=== PATIENT | male | born 1980 | race Hispanic/Latino ===

== ENCOUNTER 2017-12-21 09:27 | Emergency (ER) | payer SELFPAY ==
[2017-12-21] MEDS ORDERED: METOCLOPRAMIDE 10 MG/2mL INJ ONE (10:23)
[2017-12-21] MEDS ORDERED: DIPHENHYDRAMINE 50 MG/ML VIAL ONE (10:24)
[2017-12-21] MEDS ORDERED: KETOROLAC 30 MG/ML INJ ONE (10:24)
[2017-12-21] MEDS ORDERED: NA CHLORIDE 0.9% 1,000 ML ONE (10:24)
--- NOTE | 2017-12-21 11:32 | EDPHYS ---
Physician Documentation [facility] Name: Chris Oneal Jr Age: 37 yrs Sex: Male : 1980 Arrival Date: 12/21/2017 Time: 09:30 Bed 18 Private MD: None, None ED Physician Familia Perez HPI: 12/21 11:35 This 37 yrs old Male presents to ER via Ambulatory with complaints of Fever, gs Dizziness, Headache. 11:35 The patient complains of pain to the right buddhism. The patient describes the headache gs as throbbing. Onset: The symptoms/episode began/occurred suddenly, yesterday. Associated signs and symptoms: Pertinent negatives: altered mental status, weakness. Severity of symptoms: At its worst the pain was moderate, in the emergency department the pain is unchanged. Headache History: The patient has had previous headaches and this one is similar to previous episodes. The symptoms are alleviated by nothing. the symptoms are aggravated by nothing. The patient has experienced similar episodes in the past, several times. Historical: - Allergies: :52 No Known Allergies; sv - Home Meds: :52 None [Active]; sv - PMHx: :52 None; sv - PSHx: 09:52 None; sv - Immunization history:: Adult Immunizations up to date. - Social history:: Smoking status: Patient uses tobacco products, denies chronic smoking, but will smoke occasionally, Patient uses alcohol, weekly. - Ebola Screening: : No symptoms or risks identified at this time. ROS: 11:35 All other systems are negative. gs Exam: 11:35 Head/Face: Normocephalic, atraumatic. Eyes: Pupils equal round and reactive to light, gs extra-ocular motions intact. Lids and lashes normal. Conjunctiva and sclera are non-icteric and not injected. Cornea within normal limits. Periorbital areas with no swelling, redness, or edema. ENT: Nares patent. No nasal discharge, no septal abnormalities noted. Tympanic membranes are normal and external auditory canals are clear. Oropharynx with no redness, swelling, or masses, exudates, or evidence of obstruction, uvula midline. Mucous membranes moist. Neck: Trachea midline, no thyromegaly or masses palpated, and no cervical lymphadenopathy. Supple, full range of motion without nuchal rigidity, or vertebral point tenderness. No Meningismus. Chest/axilla: Normal chest wall appearance and motion. Nontender with no deformity. No lesions are appreciated. Cardiovascular: Regular rate and rhythm with a normal S1 and S2. No gallops, murmurs, or rubs. Normal PMI, no JVD. No pulse deficits. Respiratory: Lungs have equal breath sounds bilaterally, clear to auscultation and percussion. No rales, rhonchi or wheezes noted. No increased work of breathing, no retractions or nasal flaring. Abdomen/GI: Soft, non-tender, with normal bowel sounds. No distension or tympany. No guarding or rebound. No evidence of tenderness throughout. Back: No spinal tenderness. No costovertebral tenderness. Full range of motion. Skin: Warm, dry with normal turgor. Normal color with no rashes, no lesions, and no evidence of cellulitis. MS/ Extremity: Pulses equal, no cyanosis. Neurovascular intact. Full, normal range of motion. Neuro: Awake and alert, GCS 15, oriented to person, place, time, and situation. Cranial nerves II-XII grossly intact. Motor strength 5/5 in all extremities. Sensory grossly intact. Cerebellar exam normal. Normal gait. 11:35 Constitutional: The patient appears alert, awake. Vital Signs: 09:53 BP 131 / 88; Pulse 95; Resp 18; Temp 98.4(O); Pulse Ox 97% on R/A; Weight 104.33 kg sv (R); Height 5 ft. 9 in. (175.26 cm) (R); Pain 6/10; 11:38 BP 100 / 70; Pulse 86; Resp 16; Pulse Ox 98% on R/A; aj 09:53 Body Mass Index 33.96 (104.33 kg, 175.26 cm) sv MDM: 10:15 Patient medically screened. 11:35 Differential diagnosis: migraine, tension headache, vasomotor headache. Data reviewed: vital signs, nurses notes. Response to treatment: the patient's symptoms have resolved after treatment. Administered Medications: 10:34 Drug: Benadryl 12.5 mg Route: IVP; Site: right antecubital; aj 11:48 Follow up: Response: No adverse reaction; Pain is decreased aj 10:34 Drug: Reglan 5 mg Route: IVP; Site: right antecubital; aj 11:48 Follow up: Response: No adverse reaction; Pain is decreased aj 10:35 Drug: NS 0.9% 1000 ml Route: IV; Rate: 1 bolus; Site: right antecubital; aj 11:47 Follow up: Response: No adverse reaction; Pain is decreased; IV Status: Completed aj infusion; IV Intake: 1000ml 10:35 Drug: TORadol 30 mg Route: IVP; Site: right antecubital; aj 11:47 Follow up: Response: No adverse reaction; Pain is decreased aj Disposition: 12/21/17 11:32 Discharged to Home. Impression: Headache. - Condition is Stable. - Discharge Instructions: General Headache Without Cause. - Work release form, Medication Reconciliation Form, Thank You Letter, Antibiotic Education, Prescription Opioid Use form. - Follow up: Private Physician; When: 2 - 3 days; Reason: Re-evaluation by your physician. Follow up: Alejandro Horne MD; When: 2 - 3 days; Reason: Re-evaluation by your physician. Signatures: Christiane Castro RN RN sv Myers, Amanda, RN RN aj Starr, Gregory, MD MD Corrections: (The following items were deleted from the chart) 11:32 11:32 12/21/2017 11:32 Discharged to Home. Impression: Headache. Condition is Stable. Forms are Medication Reconciliation Form, Thank You Letter, Antibiotic Education, Prescription Opioid Use. Follow up: Private Physician; When: 2 - 3 days; Reason: Re-evaluation by your physician. 11:48 11:32 12/21/2017 11:32 Discharged to Home. Impression: Headache. Condition is Stable. Discharge Instructions: General Headache Without Cause. Forms are Medication Reconciliation Form, Thank You Letter, Antibiotic Education, Prescription Opioid Use. Follow up: Private Physician; When: 2 - 3 days; Reason: Re-evaluation by your physician. Follow up: Alejandro Horne; When: 2 - 3 days; Reason: Re-evaluation by your physician. gs
--- NOTE | 2017-12-21 11:32 | ER ---
Nurse's Notes [facility] Name: Chris Oneal Jr Age: 37 yrs Sex: Male : 1980 Arrival Date: 12/21/2017 Time: 09:30 Bed 18 Private MD: None, None Diagnosis: Headache Presentation: 12/21 09:47 Presenting complaint: Patient states: "was feeling hot last night and I woke up this sv morning with a headache and dizziness." Pt reports subjective fever and took 1 Advil this morning at 0800. Transition of care: patient was not received from another setting of care. Onset of symptoms was December 20, 2017 at 21:00. 09:47 Method Of Arrival: Ambulatory sv 09:47 Acuity: DEJA 3 sv 09:48 Risk Assessment: Do you want to hurt yourself or someone else? Patient reports no sv desire to harm self or others. Initial Sepsis Screen: Does the patient meet any 2 criteria? No. Patient's initial sepsis screen is negative. Does the patient have a suspected source of infection? No. Patient's initial sepsis screen is negative. Care prior to arrival: None. Triage Assessment: 11:47 Pain: Also complains of. aj Historical: - Allergies: 09:52 No Known Allergies; sv - Home Meds: 09:52 None [Active]; sv - PMHx: 09:52 None; sv - PSHx: 09:52 None; sv - Immunization history:: Adult Immunizations up to date. - Social history:: Smoking status: Patient uses tobacco products, denies chronic smoking, but will smoke occasionally, Patient uses alcohol, weekly. - Ebola Screening: : No symptoms or risks identified at this time. Screenin:53 Abuse screen: Denies threats or abuse. Denies injuries from another. Nutritional sv screening: No deficits noted. Tuberculosis screening: No symptoms or risk factors identified. Fall Risk None identified. Assessment: 09:54 General: Appears in no apparent distress. uncomfortable, Behavior is calm, cooperative, sv appropriate for age. General:. Pain: Complains of pain in left baptism and right baptism Pain currently is 6 out of 10 on a pain scale. Quality of pain is described as throbbing, Pain began "this morning" Is continuous, Current management is with Advil, is ineffective. Neuro: Level of Consciousness is awake, alert, obeys commands, Oriented to person, place, time, situation, Moves all extremities. Full function Gait is steady, Speech is normal, Reports dizziness. Respiratory: Respiratory effort is even, unlabored, Respiratory pattern is regular, symmetrical. GI: No signs and/or symptoms were reported involving the gastrointestinal system. : No signs and/or symptoms were reported regarding the genitourinary system. EENT: No signs and/or symptoms were reported regarding the EENT system. Derm: Skin is normal. Musculoskeletal: No signs and/or symptoms reported regarding the musculoskeletal system. 10:35 General: Appears in no apparent distress. comfortable, Behavior is calm, cooperative, aj appropriate for age. Neuro: Level of Consciousness is awake, alert, obeys commands, Oriented to person, place, time, situation. Neuro: Reports headache. Respiratory: Airway is patent Respiratory effort is even, unlabored, Respiratory pattern is regular, symmetrical. Derm: Skin is intact, is healthy with good turgor, Skin is pink, warm \\T\\ dry. normal. Vital Signs: 09:53 BP 131 / 88; Pulse 95; Resp 18; Temp 98.4(O); Pulse Ox 97% on R/A; Weight 104.33 kg sv (R); Height 5 ft. 9 in. (175.26 cm) (R); Pain 6/10; 11:38 BP 100 / 70; Pulse 86; Resp 16; Pulse Ox 98% on R/A; aj 09:53 Body Mass Index 33.96 (104.33 kg, 175.26 cm) sv ED Course: 09:30 Patient arrived in ED. sb2 09:31 None, None is Private Physician. sb2 09:46 Familia Perez MD is Attending Physician. gs 09:52 Triage completed. sv 09:53 Arm band placed on right wrist. sv 09:53 Patient has correct armband on for positive identification. Bed in low position. Call sv light in reach. Adult w/ patient. Pulse ox on. NIBP on. 10:00 Ifrah Martinez RN is Primary Nurse. aj 10:00 Report given to Ifrah CASSIDY. sv 10:35 Inserted saline lock: 18 gauge in right antecubital area, using aseptic technique. aj Blood collected. 11:32 Alejandro Horne MD is Referral Physician. gs 11:46 No provider procedures requiring assistance completed. Patient did not have IV access aj during this emergency room visit. intact, bleeding controlled, No redness/swelling at site. Pressure dressing applied. Administered Medications: 10:34 Drug: Benadryl 12.5 mg Route: IVP; Site: right antecubital; aj 11:48 Follow up: Response: No adverse reaction; Pain is decreased aj 10:34 Drug: Reglan 5 mg Route: IVP; Site: right antecubital; aj 11:48 Follow up: Response: No adverse reaction; Pain is decreased aj 10:35 Drug: NS 0.9% 1000 ml Route: IV; Rate: 1 bolus; Site: right antecubital; aj 11:47 Follow up: Response: No adverse reaction; Pain is decreased; IV Status: Completed aj infusion; IV Intake: 1000ml 10:35 Drug: TORadol 30 mg Route: IVP; Site: right antecubital; aj 11:47 Follow up: Response: No adverse reaction; Pain is decreased aj Intake: 11:47 IV: 1000ml; Total: 1000ml. aj Outcome: 11:32 Discharge ordered by . 11:46 Discharged to home ambulatory, with family. aj 11:46 Condition: good 11:46 Discharge instructions given to patient, family, Instructed on discharge instructions, follow up and referral plans. Demonstrated understanding of instructions, follow-up care. 11:48 Patient left the ED. aj Signatures: Christiane Castro, RN Ifrah Cage RN RN aj Starr, Gregory, MD MD gs Billeau, Sheri sb2
== END 2017-12-21 11:48 | disposition home or self-care (01) ==
LOC: ER 09:27
DX: R51 Headache (principal); R42 Dizziness and giddiness; F17.200 Nicotine dependence, unspecified, uncomplicated
CPT/HCPCS: 96361; 96374; 96375; 99284; J2765; J7030